=== PATIENT | male | born 1980 | race Caucasian/White ===

== ENCOUNTER 2023-03-23 10:08 | Day surgery (SDC) | payer BC ==
[~2023-03-23 10:08] MED LIST: Lactated Ringers 1,000 ML IV SCH
[2023-03-23] MEDS ORDERED: Lidocaine 2% 5 ML SDV ONE (11:28)
[2023-03-23] MEDS ORDERED: Propofol 200 MG/20 ML SDV ONE (11:28)
[2023-03-23] MEDS ORDERED: Lactated Ringers 1,000 ML IV SCH (12:00)
== END 2023-03-23 12:13 | disposition home or self-care (01) ==
LOC: MW.SDS 10:08
PROVIDERS: ATTEND Surgery
DX: K21.00 Gastro-esophageal reflux disease with esophagitis, without bleeding (principal); K29.50 Unspecified chronic gastritis without bleeding; K42.9 Umbilical hernia without obstruction or gangrene; E66.9 Obesity, unspecified; Z68.34 Body mass index [BMI] 34.0-34.9, adult; F17.210 Nicotine dependence, cigarettes, uncomplicated; Z79.899 Other long term (current) drug therapy
CPT/HCPCS: 43239; J2704; J7120; 00731; J3490

== ENCOUNTER 2023-04-17 06:34 | Day surgery (SDC) | payer BC ==
[2023-04-17] MEDS ORDERED: Albuterol 0.083% 2.5 MG/3 ML Neb Soln NEB PRN (06:58)
[2023-04-17] MEDS ORDERED: HYDROmorphone 1 MG/ML Syringe IVPUSH PRN (06:58)
[2023-04-17] MEDS ORDERED: droPERidol 5 MG/2 ML SDV IVPUSH PRN (06:58)
[2023-04-17] MEDS ORDERED: Metoclopramide 10 MG/2 ML SDV IVPUSH PRN (06:58)
[2023-04-17] MEDS ORDERED: fentaNYL 50 MCG/ML SDV IVPUSH PRN (06:58)
[2023-04-17] MEDS ORDERED: Ondansetron 4 MG/2 ML SDV IVPUSH PRN (06:58)
[2023-04-17] MEDS ORDERED: Naloxone 0.4 MG/ML SDV IVPUSH PRN (06:58)
[2023-04-17] MEDS ORDERED: Morphine 2 MG/ML SYRINGE IVPUSH PRN ×2 (06:58→09:20)
[2023-04-17] MEDS ORDERED: Bupivacaine 0.5% 30 ML SDV ONE (07:25)
[2023-04-17] MEDS ORDERED: Propofol 200 MG/20 ML SDV ONE (07:41)
[2023-04-17] MEDS ORDERED: fentaNYL 250 MCG/5 ML SDV ONE (07:41)
[2023-04-17] MEDS ORDERED: Morphine 10 MG/ML SDV ONE (07:41)
[2023-04-17] MEDS ORDERED: Ropivacaine 0.5% 5 MG/ML 30 ML SDV ONE (07:42)
[2023-04-17] MEDS ORDERED: ceFAZolin 1 GM Vial ONE (07:58)
[2023-04-17] MEDS ORDERED: ceFAZolin 2 GM in Sodium Chloride 0.9% 50 ML IV ONE (08:36)
[2023-04-17] MEDS ORDERED: Acetaminophen/HYDROcodone 325-5 MG Tab PO PRN (09:20)
[2023-04-17] MEDS ORDERED: Rocuronium Bromide 50 MG/5 ML Syringe ONE (09:25)
[2023-04-17] MEDS ORDERED: Dexamethasone 4 MG/ML 5 ML MDV ONE (09:25)
[2023-04-17] MEDS ORDERED: Ketorolac 30 MG/ML SDV ONE (09:25)
[2023-04-17] MEDS ORDERED: Sugammadex Sodium 200 MG/2 ML VIAL ONE (09:25)
[2023-04-17] MEDS ORDERED: ceFAZolin 2 GM Vial ONE (09:25)
[2023-04-17] MEDS ORDERED: Ondansetron 4 MG/2 ML SDV ONE (09:25)
[2023-04-17] MEDS ORDERED: Lactated Ringers 1,000 ML IV SCH (09:30)
[2023-04-17] MEDS ORDERED: Lidocaine 2% 11 ML Jelly Filled Syringe ONE (10:40)
== END 2023-04-17 10:55 | disposition home or self-care (01) ==
LOC: MW.SDS 06:34
PROVIDERS: ATTEND Surgery
DX: K42.0 Umbilical hernia with obstruction, without gangrene (principal); K31.89 Other diseases of stomach and duodenum; K21.00 Gastro-esophageal reflux disease with esophagitis, without bleeding; F17.290 Nicotine dependence, other tobacco product, uncomplicated; E66.9 Obesity, unspecified; Z68.30 Body mass index [BMI] 30.0-30.9, adult
CPT/HCPCS: 49592; A9270; J0131; J0665; J0690; J1100; J1885; J2270; J2405; J2704; J2795; J3010; J3490; J7120